=== PATIENT | female | born 1965 | race Caucasian/White ===

== ENCOUNTER → 2024-05-01 13:33 | Outpatient (REF) | payer BC, SELFPAY | LOC: HWRAD 13:33 | PROVIDERS: ATTENDING PHYSICIAN Obstetrics & Gynecology Gynecologic Oncology; FAMILY PHYSICIAN Family Medicine | DX: N95.0 Postmenopausal bleeding (principal); Z12.4 Encounter for screening for malignant neoplasm of cervix | CPT/HCPCS: 76830; 76856 ==

== ENCOUNTER → 2024-05-24 14:08 | Outpatient (REF) | payer BC, SELFPAY | LOC: WDC 14:08 | PROVIDERS: ATTENDING PHYSICIAN Obstetrics & Gynecology Gynecologic Oncology; FAMILY PHYSICIAN Family Medicine | DX: Z12.31 Encounter for screening mammogram for malignant neoplasm of breast (principal) | CPT/HCPCS: 77063; 77067 ==

== ENCOUNTER → 2024-06-04 08:56 | Outpatient (REF) | payer BC, SELFPAY | LOC: WDC 08:56 | PROVIDERS: ATTENDING PHYSICIAN Obstetrics & Gynecology Gynecologic Oncology; FAMILY PHYSICIAN Family Medicine | DX: R92.8 Other abnormal and inconclusive findings on diagnostic imaging of breast (principal) | CPT/HCPCS: 76642 ==

== ENCOUNTER 2024-06-24 06:05 | Day surgery (SDC) | payer BC, SELFPAY ==
--- NOTE | 2024-06-23 16:25 | W.CON.GYNONC ---
Chief Complaint
-
n/A
History of Present Illness
58�year�old menopausal since age 52 presents to the office to see me for the close consultation regarding
postmenopausal vaginal discharge and bleeding. Patient reports that in September 2023 she began noticing clear watery discharge
per vagina antibiotic and actually had to take Pads with her during a trip in October which was unusual. Within the last 2 weeks she
has noted passage of tissue and pinkish discharge per vagina at times blood which prompted her to start looking for a physician to
further evaluate this issue. She was unable to get into the office of [facility] reached out to our office yesterday asking
for an appointment. Patient's last gynecologic visit was with Dr. Mai Esteban probably in 2018.
Past gynecologic history significant for menarche at 15, menses every 30 days lasting 5 to 6 days. She has had a history of hide.
In her early 40s. She underwent dilation and curettage procedures she reports history of abnormal Pap smear with positive HPV for
20s, she did not require treatments, not sexually active due to menopasual symptoms (dryness, decreased libido)
Past medical history none. Please note patient does not have a primary care physician has not seen family medicine or internal
send abnormal
Past surgical history includes 2 prior D&C
Medications none
Family history father of lung cancer with history of smoking,
mother is living, has had a breast tumor removed and has had stage 0 vaginal cancer
Sister is handicapped Secondary to Parkinson's disease
Daughter narcolepsy
Social history patient denies tobacco drug and marijuana use, she drinks alcohol socially
Patient is , works at [employer]
Health screening studies: Patient has never had a mammography or colonoscopy
�����������������������������������������������
Her Pap smear showed negative for intraepithelial lesion or malignancy, high risk HPV test was negative
Endocervical polyp that was removed partially shows benign endometrial polyp
Endometrial biopsy shows fragments of benign endometrial polyp and atrophic endometrium. No hyperplasia or carcinoma seen
Ultrasound of pelvis was done. This measures 8.7 x 3.2 x 5.5 cm, endometrium is heterogeneous up to 1.8 cm with tiny cystic
areas compatible with a cervical polyp. Right ovary measures 1.6 cm, left ovary measures 1.6 cm there is no fluid in the cul�de�sac
Medical History
Allergies
Allergies reflect when allergies were last updated in [facility].
No Known Allergies Allergy (Verified 06/19/24 15:30)
Physical Exam
Physical Exam
Fbqacb=314.40lb, Temp=97.2f, Ntbss=887, Resp=18, JvbtqodmHR=044, DiastolicBP=82
ECOG 0: Fully active, able to carry on all pre�disease performance without restriction
Physical Exam
General: Well developed, well nourished patient. In no acute distress.
Neck: No thyromegaly. No cervical lymphadenopathy.
Lungs: Clear to auscultation. Good air movement bilaterally.
Cardiac: Regular rate. Regular rhythm. No murmurs appreciated.
Abdomen: Abdomen is soft. Non�tender to palpation. Non�distended.
Extremities: No edema.
Hematologic/Lymphatic: No palpable lymphadenopathy.
Musculoskeletal: Normal range of motion. Strength and Tone are normal.
Skin:Non�jaundiced. No petechia. No purpura.
Neurologic: Speech is fluent. Normal gait and station. Cranial nerves intact.
Results
-
,04/15/24 BF736=15.0
04/15/24 MVDIDP=037 04/15/24 POTASSIUM=3.9 04/15/24 CHLORIDE=95 04/15/24 GLUCOSE=94 04/15/24 BUN=6 04/15/24
CREAT=0.62 04/15/24 CALCIUM=9.5 Total Protein=7.1, 04/15/24 ALBUMIN=4.5
, Total Bili=0.6 04/15/24 ALK PHOS=79, 04/15/24 AST=25, 04/15/24 ALT=17
8/20/24 PROTIME=10.9, 04/15/24 INR=1.0,
Ferritin=61, 04/15/24 Q40=614
Data Reviewed
-
Diagnostic Radiology: Image personally visualized and interpreted
Ultrasound: Image personally visualized and interpreted
Impression / Plan
-
I spoke with the patient at length that she has postmenopausal bleeding.
So far there is a very reassuring results indicating absence of any abnormality in the cytology of the cervix, biopsy of the polyp as
well as endometrial biopsy.
There does remain thickening of the endometrium on ultrasound which is probably suggestive of residual polyp. I am recommending
a formal evaluation and curettage for definitive evaluation.
[2024-06-24] VITALS (7 sets, daily range): BP systolic 113–175; BP diastolic 57–91; BMI 26.4
[2024-06-24] MEDS: CELEBREX 200 MG PO (06:17)
[2024-06-24] MEDS: HEPARIN 5000 UNITS SC (06:18)
[2024-06-24] MEDS: TYLENOL 1000 MG PO (06:18)
--- NOTE | 2024-06-24 07:49 | OR.RPT ---
Operative Report
Operative Report
Date of procedure June 24, 2024
Preoperative diagnosis: Perimenopausal bleeding
Postoperative diagnosis: Same, multiple endometrial polyps
Procedure: Dilation and curettage, MyoSure polypectomy
Surgeon: Arnold Duncan MD
Anesthesia: General LMA intubation
Complication: None
Estimated blood loss: 25 cc
Procedure in detail: This patient was brought to the operating room and placed in supine position general anesthesia was administered, she was intubated without any difficulty and placed under general anesthesia. She was placed in lithotomy
position using yellowfin stirrups and prepped on the perineum and vagina and she was draped. She received 2 g of Ancef for prophylaxis. Timeout procedure was completed. Weighted speculum was placed in the posterior fornix. Anterior lip of the
cervix was grasped with single-tooth tenaculum. Paracervical block with total of 10 cc 1% lidocaine was performed injected at 5 and 7:00 locations. The uterus sounded to 9 cm. The cervix was dilated and MyoSure hysteroscopy device was introduced,
large polyp was noted in the center, multiple smaller polyps were noted throughout the cavity. MyoSure reach was used to shave off the large polyp and this was submitted in a back to pathology. Next sharp curettage of the endometrial cavity was
performed and the residual polyps in the endometrial cavity was removed and submitted to pathology. All instruments were removed. There was good hemostasis. Patient was awakened extubated and returned back to recovery room stable awake and
extubated condition, counts of laps instruments and needle was correct x 2. I was present and scrubbed for entire procedure as dictated above.
Disposition: To recovery room, awake and extubated
== END 2024-06-24 09:15 | disposition home or self-care (01) ==
LOC: SDS 06:05
PROVIDERS: ATTENDING PHYSICIAN Obstetrics & Gynecology Gynecologic Oncology
DX: N84.0 Polyp of corpus uteri (principal); N85.8 Other specified noninflammatory disorders of uterus; N95.0 Postmenopausal bleeding
CPT/HCPCS: 58558; 88305

== ENCOUNTER 2024-08-18 06:25 | Day surgery (SDC) | payer BC, SELFPAY | END 2024-08-18 09:47 | disposition home or self-care (01) | LOC: GI 06:25 | PROVIDERS: ATTENDING PHYSICIAN Internal Medicine; FAMILY PHYSICIAN Family Medicine | DX: Z12.11 Encounter for screening for malignant neoplasm of colon (principal); K63.5 Polyp of colon; K64.8 Other hemorrhoids; K62.89 Other specified diseases of anus and rectum; Z83.719 Family history of colon polyps, unspecified | CPT/HCPCS: 45380; 88305 ==

== ENCOUNTER → 2025-07-16 07:57 | Outpatient (REF) | payer BC, SELFPAY | LOC: WDC 07:57 | PROVIDERS: ATTENDING PHYSICIAN Physician Assistant Surgical; FAMILY PHYSICIAN Family Medicine | DX: Z12.31 Encounter for screening mammogram for malignant neoplasm of breast (principal) | CPT/HCPCS: 77063; 77067 ==